=== PATIENT | female | born 1990 | race African-American/Black ===

== ENCOUNTER → 2018-03-01 | Outpatient (CLI) | payer OTHER ==
[~2018-03-01] MED LIST: CITA-145 PO; FERR159T PO; NORG1TAB74 PO
--- NOTE | 2018-03-01 14:20 | RADIOLOGY IMAGING REPORT ---
FACILITY: [facility] [place] PATIENT NAME: Madison Louise : 1990 MR: [id number] V: [id number] EXAM DATE: ORDERING PHYSICIAN: ODELL ROSS TECHNOLOGIST: [facility] Patient: Madison Louise : 1990 Visit/Account:[id number] Date of Sevice: 03/01/2018 TRANSVAGINAL NON-OB HISTORY: LEIOMYOMA OF UTERUS, UNSPECIFIED TECHNIQUE: There has been satisfactory transvaginal ultrasonic evaluation of the pelvis. 3-D imaging was performed by the technologist according to protocols developed by the radiologists and the [facility] radiology staff. [employer] images are stored on PACS. COMPARISON: None. FINDINGS: Uterus: measures: 10.7 cm length x 6.9 cm AP x 10.2 cm transverse. Myometrium: At least 5 uterine leiomyomas are present. The largest measures 3.7 x 3.4 x 3.4 cm and i s located within the lower uterine segment.. Endometrium: Unremarkable; endometrial thickness 15 mm. Cervix: Grossly negative. Ovaries: Right - incidental note of an anechoic right ovarian cyst measuring 3.4 x 2.5 x 3.4 cm. Left - 1 size, contour and echotexture. Adnexa: Grossly unremarkable. Free pelvic fluid: None. Bladder: Empty IMPRESSION: 1. Multiple uterine leiomyomas. The largest measures 3.7 x 3.4 x 3.4 cm and is located within the l ower uterine segment. Report Dictated By: Juan Pablo Ceballos DO at 03/01/2018 2:12 PM Report E-Signed By: Juan Pablo Ceballos DO at 03/01/2018 2:15 PM WSN:[id number]
== END ==
LOC: RAD 08:27
PROVIDERS: ATTEND Obstetrics & Gynecology
DX: D25.9 Leiomyoma of uterus, unspecified (principal); E22.9 Hyperfunction of pituitary gland, unspecified
CPT/HCPCS: 76830